=== PATIENT | female | born 1945 | race Caucasian/White ===

== ENCOUNTER → 2020-03-24 | Outpatient (CLI) | payer OTHER, BC ==
[~2020-03-24] VITALS: Ht 149.9 cm; Wt 51.3 kg
[~2020-03-24] MED LIST: ADVIL LIQUI-GE200 MG PO; DAPTOMYCIN350 MG IV; DIAZEPAM 10 MG10 M1 PO; ERTAPENEM1 GM IV; MAGIC MOUTHWASH SWISH&SPIT
[2020-03-24 16:25] VITALS: BP 147/57
[2020-03-24 16:31] VITALS: BP 147/57
--- NOTE | 2020-03-24 17:39 | NUR ---
HERE FOR 1ST DOSE OF BOTH ERTAPENEM AND DAPTOMYCIN FOR SURGICAL SITE INFECTION, MOUTH. TEACHING DONE. ALREADY HAS HOME HEALTH AND HAS BEEN ON IV ANTIBIOTICS SINCE JANUARY BUT DEVELOPED AN ADVERSE/ALLERGIC REACTION TO PIPERACILLIN A FEW DAYS AGO AND THE DRUG WAS STOPPED. RASH FROM THAT HAS ALREADY RESOLVED. PT TOLERATED TODAY'S MEDICATIONS WITHOUT ANY S/S REACTION. DELIVERY OF DRUG COMING TO HOUSE TONITE. PT AND LEAVING FOR THE [facility] IN THE MORNING. WILL WATCH FOR TOTAL OF 15 MIN THEN DISMISS IF REMAINS STABLE.
== END ==
LOC: OPONC 15:48
PROVIDERS: ATTEND Specialist
DX: T81.49XA Infection following a procedure, other surgical site, initial encounter (principal)
CPT/HCPCS: 95000